=== PATIENT | male | born 1950 | race Caucasian/White ===

== ENCOUNTER 2021-12-09 07:15 | Inpatient (IN) | payer OTHER ==
[~2021-12-09] VITALS: Ht 172.7 cm; Wt 87.1 kg
[~2021-12-09 07:15] MED LIST: FINASTERIDE5 MG; NEURONTIN600 MG; PROTONIX40 M1; ZANTAC 7575 MG; ZETIA10 MG; ZOCOR20 MG
[2021-12-09] MEDS ORDERED: CHILDREN'S ASPI81 MG PO (10:37)
[2021-12-09] MEDS ORDERED: ALTACE2.5 MG PO (10:37)
[2021-12-09] MEDS ORDERED: FINASTERIDE5 MG PO (10:37)
[2021-12-09] MEDS ORDERED: GLUMETZA500 MG PO (10:38)
[2021-12-09] MEDS ORDERED: VITAMIN C PO (10:38)
[2021-12-09] MEDS ORDERED: VITAMIN D PO (10:39)
[2021-12-14] MEDS ORDERED: FAMOTIDINE40 MG (11:08)
[2021-12-14] MEDS ORDERED: VITAMIN C500 M1 (11:08)
[2021-12-14] MEDS ORDERED: VITAMIN D310 MC4 (11:09)
[2021-12-14] MEDS ORDERED: COLACE100 MG PO (11:37)
[2021-12-14] MEDS ORDERED: PERCOCET 5-3251 EACH PO (11:39)
[2021-12-14] MEDS ORDERED: AMOX-CLAV 875-1 EACH PO (11:39)
[2021-12-14] MEDS ORDERED: MEDROLPACK PO (11:39)
== END 2021-12-15 17:08 | DRG 29 ==
LOC: SURH 12-14 06:25 → O/R 12-14 06:25 → SURH 12-14 07:15
PROVIDERS: ADMIT Orthopaedic Surgery Orthopaedic Surgery of the Spine; ATTEND Orthopaedic Surgery Orthopaedic Surgery of the Spine
PROC: 0RG20A0 Fusion of 2 or more Cervical Vertebral Joints with Interbody Fusion Device, Anterior Approach, Anterior Column, Open Approach (ICD-10-PCS; 2021-12-14)
PROC: 0PB30ZZ Excision of Cervical Vertebra, Open Approach (ICD-10-PCS; 2021-12-14)
PROC: 07DS0ZZ Extraction of Vertebral Bone Marrow, Open Approach (ICD-10-PCS; 2021-12-14)
PROC: 0RT30ZZ Resection of Cervical Vertebral Disc, Open Approach (ICD-10-PCS; principal; 2021-12-14 14:15)
DX: M54.12 Radiculopathy, cervical region (principal); M50.021 Cervical disc disorder at C4-C5 level with myelopathy; M48.02 Spinal stenosis, cervical region